=== PATIENT | male | born 1965 | race Caucasian/White ===

== ENCOUNTER 2019-07-01 18:17 | Observation (INO) | payer OTHER, SELFPAY ==
[2019-07-01 18:18] VITALS: BP 157/96; PULSE 74; RESP 16; TEMP 36.4; O2SAT 98; BMI 24.2
--- NOTE | 2019-07-01 18:22 | ED.RN ---
CALLED FOR EKG AT 1820.
[2019-07-01 18:35] VITALS: O2SAT 100
--- NOTE | 2019-07-01 18:35 | EKG12_ITS ---
Test Reason : CP Blood Pressure : / mmHG Vent. Rate : 069 BPM Atrial Rate : 069 BPM P-R Int : 174 ms QRS Dur : 094 ms QT Int : 384 ms P-R-T Axes : 080 066 066 degrees QTc Int : 411 ms Normal sinus rhythm with sinus arrhythmia Normal ECG Confirmed by CORRIE BATES ([id number]), editorial clerk GURMEET LOUIS ([id number]) on 07/03/2019 2:17:42 PM Referred By: Daphne Rosen Confirmed By:CORRIE BATES
--- NOTE | 2019-07-01 18:45 | RAD_ITS ---
STUDY: X-RAY CHEST REASON FOR EXAM: Male, 54 years old. Chest pain. TECHNIQUE: Single AP portable view of the chest. COMPARISON: None. FINDINGS: The lungs are clear and expanded. There is no demonstrated pleural abnormality. Normal size heart. Normal mediastinum and sudhir. Normal visualized pulmonary arteries. Normal visualized aortic arch and descending thoracic aorta. Normal visualized thoracic spine. Normal visualized ribs, clavicles, and shoulders. There is no demonstrated abnormality of the visualized soft tissue structures of the upper abdomen. RAD/Chest 1 View (Portable) IMPRESSION: No acute cardiopulmonary disease. Electronically Signed: Maximiliano Mayfield DO at 19:07 EDT Tel [phone], Service support ,
[2019-07-01] MEDS: Aspirin 81 MG TAB.CHEW 324 MG PO (18:53)
--- NOTE | 2019-07-01 18:57 | ED.VIS.GEN ---
History of Present Illness Chief Complaint: Chest Pain Detail of Chief Complaint: Please read HPI Informant: Patient Onset: Days - Symptoms occurred on Sunday Context: Sudden Onset Timing: Intermittent Quality: Vertigo, nausea, weakness fatigue and chest discomfort Location: Left side of chest Current Severity: - - Presently patient has no symptoms Maximum Severity: Mild Worsened by: Nothing per se Relieved by: Nothing Associated Symptoms: Tingling left arm, please read HPI Narrative: Is a 54-year-old male with history of IBS who presents for evaluation. He had numerous symptoms. Patient states he was very active on Sunday and Sunday and had no symptoms. Sunday morning he awoke had pancakes etc. for breakfast. He went out to the shed to work on the [employer], which she was selling. He states he became dizzy which she defined as a spinning sensation. There was no ocular symptoms and specifically no diplopia. He had episode of vomiting and felt better. He reported breaking out in a cold sweat prior to vomiting. He complained of loss of energy, fatigue and lightheadedness when this occurred. He believes he did not have enough to eat. He went to the house and got to protein bars. He walked back to the barn which is 50 feet from the house. He had recurrence of nausea, diaphoresis and lack of energy. The person came to the house to purchase the Rototiller. He informed the gentleman he did not feel well and would need a minute or 2. He walked back to the shed and went on a 4 greene to show the gentleman something else. He states he had to lean forward because he had no energy. He went into the house and lied on the floor. He was on his left side and specifically on his left arm. When he was lying on his left side he experienced intermittent tingling in his left extremity only. He did complain of discomfort in his chest which he described as a tight sensation. This lasted apparently for some time. He reports yesterday while doing nothing he had a sensation of something on the left side compared to the right. There was no other associated symptoms. Patient is a non-smoker. He is a nondrinker. He has no history of hiatal hernia or peptic ulcer disease. He denies black or maroon stool. Family history is remarkable for hypertension with no known history of LA. Presently has no symptoms. Prior similar symptoms: No Recent Illness/Hospitalization: No - Past Medical History (1) IBS (irritable bowel syndrome) Status: Chronic Past Medical History - Allergies and Home Meds Allergies/Adverse Reactions: Allergies No Known Allergies Allergy (Verified 07/01/19 18:17) Primary Care Physician: NOT,DEFINED [NON-STAFF] - Prior records reviewed: Yes Surgical History: no surgical history Lives: Spouse/ Significant Other Smoking Status: Never smoker Alcohol: None Drugs: None Review of Systems General: Reports: Malaise, Sweats. Denies: Chills, Fever, Subjective, Weight loss Eyes: Denies: Visual changes - bilaterally, Blurred Vision - bilaterally ENT: Denies: Bilateral ear pain, Rhinorrhea, Sore throat Cardiovascular: Reports: Chest pain. Denies: Palpitations, Heart racing Respiratory: Denies: Dyspnea, Cough, Dyspnea on exertion, Orthopnea, Paroxysmal nocturnal dyspnea Gastrointestinal: Reports: Nausea, Vomiting. Denies: Abdominal pain, Diarrhea, Melena, Hematochezia Genitourinary: Denies: Dysuria, Hematuria, Frequency Musculoskeletal: Denies: Myalgias, Arthralgias, Neck pain, Back pain, Swelling, Extremity Pain, -, - Skin: Denies: Rash, Wounds Neurological: Reports: Weakness. Denies: Headache, Parasthesia, Numbness, -, - Endocrine: Denies: Polyuria, Polydipsia Hematologic: Denies: Easy bruising, Easy bleeding Allergy: Denies: Uticaria Physical Exam Vital Signs/Narrative: Vital Signs Temp Pulse Resp BP Pulse Ox 07/01/19 18:35 100 07/01/19 18:18 97.5 F L 74 16 157/96 H 98 Inital Vital Signs reviewed: Yes General: Well nourished, Well developed, No Acute Distress Head: Normocephalic, Atraumatic Eyes: Perrl, EOMI. Negative for: Pale conjunctiva, Scleral icterus ENT: Moist mucous membranes, No rhinorrhea, TM's clear Neck: Supple, Nontender, No lymphadenopathy, No JVD, - - Is midline. There is no carotid bruit. Cardiovascular: Regular rate, Regular rhythm, No murmurs, Normal S1, Normal S2 Respiratory: No distress, CTA bilaterally, Chest nontender Abdomen: Soft, Nontender, Nondistended, Normal bowel sounds Rectal: Deferred Back: Nontender, Normal Inspection Extremities: Nontender, No edema, - - There is no asymmetry, swelling, discoloration, leg vein distention, palpable cords or tenderness along the distribution of the deep venous system. Skin: Normal color, No rash, No Trauma. Negative for: Cyanosis, Diaphoresis, Jaundice Neurological: Alert, Oriented x3, Cranial nerves II-XII grossly intact, Normal Strength, Normal Sensation Psychological: Normal affect, Normal Mood Diagnostic/Tx/Re-eval Chest X-Ray - ED: 1 View, Read by ED Physician, Normal, Heart, Mediastinum, Bony Structures, No Acute Disease, - - Hyper aeration of lung guajardo. There is no evidence of pneumothorax or effusion. X-ray was interpreted by me. Impressions Chest X-Ray 07/01/19 18:45 IMPRESSION: No acute cardiopulmonary disease. Electronically Signed: Maximiliano Mayfield DO at 19:07 EDT Tel [phone], Service support , 07/01/19 18:45 Chest 1 View (Portable) [RAD] Stat Laboratory Results 07/01/19 07/01/19 18:35 18:35 WBC 8.5 RBC 4.80 Hgb 15.0 Hct 44.1 MCV 91.9 MCH 31.3 MCHC 34.0 RDW Std Deviation 42.0 RDW Coeff of Chance 12.5 Plt Count 253 MPV 9.8 Immature Gran % (Auto) 0.500 Neut % (Auto) 58.6 Lymph % (Auto) 29.7 [place] % (Auto) 8.8 Eos % (Auto) 1.5 Baso % (Auto) 0.9 Absolute Neuts (auto) 5.0 Absolute Lymphs (auto) 2.53 Nucleated RBC % 0 Sodium 142 Potassium 3.8 Chloride 110 H Carbon Dioxide 24.0 Anion Gap 8 BUN 19 H Creatinine 1.20 Estim Creat Clear Calc 81.82 Est GFR (MDRD) Af Amer 81 Est GFR (MDRD) Non-Af 67 BUN/Creatinine Ratio 15.8 Glucose 88 Calcium 8.7 Troponin I 0.154 H Patient's troponin is elevated and indeterminate. Will contact hospitalist for observation status to PCU for serial enzymes and further testing. Patient's heart score is a 4. No further treatment was initiated since patient is symptom-free. - Medical Decision Making Patient initial episode of dizziness is consistent with vertigo. This was transient and would suggest peripheral vertigo and not central. Differential regarding chest pain is cardiac versus noncardiac. Since patient had hours of pain on Sunday and prolonged pain on Sunday will obtain EKG and troponin. If troponin is negative with atypical story and EKG is normal that this does not represent cardiac etiology. CBC was obtained to rule out anemia. Basic metabolic panel to rule out renal disease. ED Disposition - Plan for ED Patient: Disposition: Acute Care Hospital [facility] Diagnosis: Chest pressure, Elevated troponin I level Referrals: NOT,DEFINED [NON-STAFF] -
[2019-07-01 19:11] LABS: Absolute Lymphocyte Count 2.53 X10^3/uL (0.83-4.51); Basophil# 0.08 X10^3/uL; Basophil% 0.9 % (0-1); Eosinophil# 0.13 X10^3/uL; Eosinophils% 1.5 % (0-5); Hematocrit 44.1 % (40-54); Lymphocyte # 2.53 X10^3/ul (4.0); Lymphocyte % 29.7 % (19-41); Mean Corpuscular Hgb 31.3 pg (27.0-32.0); Mean Corpuscular Volume 91.9 fL (80-94); Mean Platelet Vol. 9.8 fl (6.2-12.0); Monocyte# 0.75 X10^3/uL; Monocyte% 8.8 % (0-10); NRBC Flagged by Analyzer 0 % (0-5); Neutrophil # 4.99 X10^3/uL (2.7-7.7); Neutrophil % 58.6 % (47-70); Platelet Count 253 K/mm3 (150-450); RBC Distribution Width CV 12.5 % (11.6-14.6); White Blood Count 8.5 K/mm3 (4.4-11.0)
[2019-07-01 19:24] LABS: Anion Gap 8 (5-15); BUN 19 mg/dL (7-18); BUN/Creat Ratio 15.8 RATIO (10-20); Calcium,Total 8.7 mg/dL (8.5-10.1); Chloride 110 mmol/L (98-107); EST Glomerular Filtration Rate 67 mL/min (>60); Est Glom Filt Rate - Afr Amer 81 mL/min (>60); Estimated Creatinine Clearance 81.82 ml/min; Glucose 88 mg/dL (74-106); Potassium 3.8 mmol/L (3.5-5.1); Sodium Level 142 mmol/L (136-145)
[2019-07-01 20:01] VITALS: BP 155/105; PULSE 61; RESP 23; O2SAT 99
[2019-07-01 21:01] VITALS: BP 158/104; PULSE 63; RESP 15; TEMP 36.9; O2SAT 100
--- NOTE | 2019-07-01 21:21 | HP.PCM_ITS ---
Problem List (1) IBS (irritable bowel syndrome) Status: Chronic (2) Chest pressure Status: Acute (3) Elevated troponin I level Status: Acute History of Present Illness Date of Admission: 07/01/19 Chief Complaint: Nausea, dizziness, chest pressure. The patient is a 54 year old M with no significant past medical history presented to the emergency room because of nausea, dizziness and chest pressure. His illness started before yesterday, in the morning after he woke up from sleep, felt nauseated, lightheaded and dizzy, sat down and he continued to have nausea and lightheadedness but later improved. Later on the same day, he started having chest pressure, it is not real pain, described as heavy weight on his chest mainly on the left side, not radiating, continue to have significant nausea with it, associated with with sensation to his left upper extremity and without aggravating or relieving factors. Yesterday after he woke up from sleep, he continued to have this chest pressure which was constant but nausea and dizziness resolved. Today, he denied any more chest pressure but he felt weak, tired and fatigued and he decided to come to the emergency department. In the emergency department, his blood pressure was elevated, other vital signs were stable. His routine blood work was unremarkable. Chest x-ray showed no acute findings. EKG revealed normal sinus rhythm, normal IL interval, normal QRS, normal QTC, no acute segment changes. Troponin was 0.154. He is being admitted for atypical chest pressure with abnormal cardiac enzymes for evaluati on. Past Medical History Past Medical History (Chronic Problems): Chronic Problems IBS (irritable bowel syndrome) (Chronic) Allergies No Known Allergies Allergy (Verified 07/01/19 18:17) Home Medications: Ambulatory Orders Medication Instructions Recorded NK 07/01/19 Surgical History: no surgical history Lives: Spouse/ Significant Other Smoking Status: Never smoker Alcohol: None Drugs: None - *Family History Maternal History Items: Hypertension Paternal History Items: No pertinent history Sibling History Items: Hypertension Review of Systems Constitutional: Reports: Fatigue. Denies: Anorexia, Chills, Fever Eyes: Denies: Blurred vision, Double vision, Drainage, Redness HEENT: Denies: Difficulty Hearing, Ear Pain, Eye Pain, Nasal Congestion, Sore Throat Cardiovascular: Reports: Chest Pressure, Light Headedness. Denies: Chest Pain, Heaviness, Palpitations, Syncope Respiratory: Denies: Cough, Pleuritic Pain, Shortness of Breath, Sputum production, Wheezing Gastrointestinal: Reports: Nausea, Vomiting. Denies: Abdominal Pain, Constipation, Diarrhea Genitourinary: Denies: Dysuria, Frequency, Hematuria Musculoskeletal: Denies: Arm Pain, Back Pain, Foot Pain, Hand Pain Skin: Denies: Dryness, Rash Neurological: Denies: Balance problems, Double vision, Change in Speech, Slurred speech, Confusion, Focal weakness, Incoordination, Numbness Psychiatric: Denies: Anxiety, Depression Endocrine: Denies: Change in Body Habitus, Polydipsia, Polyuria VTE Information - Inpt Only VTE Present on Admission: No VTE Mechan Device Prophylaxis: None VTE Pharm Prophylaxis ordered?: No Patient Problems: Active and Suspected Problems Chest pressure (Acute) Elevated troponin I level (Acute) - Physical Exam Vitals/I&O's: Vital Signs Temp Pulse Resp BP Pulse Ox 98.5 F 63 15 158/104 H 100 07/01/19 21:01 07/01/19 21:01 07/01/19 21:01 07/01/19 21:01 07/01/19 21:01 Oxygen Delivery Method Room Air Weight: 188 lb 7.924 oz Body Mass Index (BMI) 24.2 General: Alert, Oriented x3, Cooperative, No apparent distress HEENT: Atraumatic, PERRLA, EOMI, Normocephalic Oral: Moist Mucosa, No Gingival or Mucosal Lesions/ Ulcerations Neck: Supple, No JVD, Negative Carotid Bruits, Trachea Midline, Thyroid Normal Size and Texture Lungs: Clear to auscultation, Normal air movement, No rhonchi, No wheeze, No rales Cardiovascular: Regular rate, Regular Rhythm, Normal S1, Normal S2, No murmurs, PMI Normal Abdomen: Bowel Sounds Present, Soft, Non Tender, Non-Distended, No Hepato- splenomegaly Extremities: No clubbing, No cyanosis, No edema Skin: No rashes, No breakdown Lymphatic: No Cervical, Supraclavicular, or Inguinal Adenopathy Neurological: Cranial nerves II-XII grossly intact, Motor Exam 5/5 strength throughout Psych/Mental Status: Normal Affect, Appropriate, Alert and oriented to time, place, person, mood and affect Laboratory Results 07/01/19 18:35: WBC 8.5, RBC 4.80, Hgb 15.0, Hct 44.1, MCV 91.9, MCH 31.3, MCHC 34.0, RDW Std Deviation 42.0, RDW Coeff of Chance 12.5, Plt Count 253, MPV 9.8, Immature Gran % (Auto) 0.500, Neut % (Auto) 58.6, Lymph % (Auto) 29.7, [place] % (Auto) 8.8, Eos % (Auto) 1.5, Baso % (Auto) 0.9, Absolute Neuts (auto) 5.0, Absolute Lymphs (auto) 2.53, Nucleated RBC % 0 07/01/19 18:35: Sodium 142, Potassium 3.8, Chloride 110 H, Carbon Dioxide 24.0, Anion Gap 8, BUN 19 H, Creatinine 1.20, Estim Creat Clear Calc 81.82, Est GFR (MDRD) Af Amer 81, Est GFR (MDRD) Non-Af 67, BUN/Creatinine Ratio 15.8, Glucose 88, Calcium 8.7, Troponin I 0.154 H Clinical Impression(s) from Imaging Studies Chest X-Ray 07/01/19 18:45 IMPRESSION: No acute cardiopulmonary disease. Electronically Signed: Maximiliano Mayfield DO at 19:07 EDT Tel [phone], Service support , Assessment/Plan All Active Problems Chest pressure (Acute) Elevated troponin I level (Acute) This is a 54 years old male patient presented to the emergency room because of nausea, dizziness and chest pressure, found to have indeterminate troponin and he is being admitted for evaluation. #1 atypical chest pressure/abnormal cardiac enzymes: Patient has no risk factors for CAD. He is non-smoker, nondrinker, no family history of premature CAD. EKG showed no acute ischemic changes. Troponin is indeterminate. Chest x-ray showed no acute findings. Blood pressure is elevated, other vital signs are stable, no tachycardia, pulse ox is maintained on room air. Plan: Admit to PCU for observation, cardiac monitoring, serial cardiac enzymes, repeat EKG tomorrow morning, sublingual nitroglycerin PRN, Tylenol PRN, gentle IV fluids for ideation, IV antiemetics as needed, start baby aspirin, fasting lipid profile 2D echocardiogram, cardiology consult. Case discussed with Dr. Steinberg who recommended 2D echocardiogram and patient will be seen in consultation tomorrow morning and they will decide if we need to go for stress test or directly for cardiac catheterization. #2 elevated blood pressure: Blood pressure has been up to 170 systolic in the ED. Plan to monitor, IV hydralazine PRN, may need to start him on antihypertensive medications. #3 DVT prophylaxis: Low risk patient, no prophylaxis indicated. This note was generated with [employer] dictation software. It may contain incorrect words, spelling, and punctuation that were not noted in checking the note before signing. OBSV E&M: 81027 Initial observation care L3
[2019-07-01 21:30] VITALS: BP 149/93; PULSE 61; RESP 16; TEMP 37.3; O2SAT 99; BMI 23.6
--- NOTE | 2019-07-01 21:46 | ECHOD_ITS ---
Reason For Study: CHEST PAIN Procedure This was a 2D Doppler, Color Flow transthoracic echocardiogram. The study was technically difficult. The study was technically limited. Due to poor parasternal accoustic windows. Exam performed portable in patient room. Left Ventricle Normal LV size. Left ventricular systolic function is normal. The estimated ejection fraction is 60 %. No evidence for diastolic dysfunction. No regional wall motion abnormalities noted. Right Ventricle Normal RV size. Normal systolic function. Atria Normal left atrium. Normal right atrium. No doppler evidence for ASD. Mitral Valve There is no mitral annular calcification. Normal mitral valve. Trivial mitral valve insufficiency. Tricuspid Valve Normal tricuspid valve. Trivial tricuspid valve insufficiency. Aortic Valve The aortic valve is not well visualized. Pulmonic Valve The pulmonic valve is not well visualized. Great Vessels Normal sized aortic root. Pericardium/Pleural No pericardial effusion. MMode/2D Measurements & Calculations LVIDd: 5.1 cm IVSd: 0.89 cm Ao root diam: 3.2 cm LVIDs: 3.5 cm LVPWd: 0.89 cm RVDd: 3.2 cm FS: 31.9 % LAV(MOD-bp): 39.3 ml LA A4 area: 11.3 cm2 RA A4 area: 13.6 cm2 LAV(MOD-bp) Indexed: 18.8 ml/m2 LAV(MOD-sp2): 46.1 ml LAV(MOD-sp4): 26.7 ml Time Measurements MV dec time: 0.21 sec Doppler Measurements & Calculations MV E max rush: 78.7 cm/sec Lat Peak E' Rush: 10.9 cm/sec Med Peak E' Rush: 9.7 cm/sec MV A max rush: 66.0 cm/sec E/E' lat: 7.2 E/E' med: 8.1 MV E/A: 1.2 Ao V2 max: 130.4 cm/sec LV V1 max: 99.3 cm/sec Ao max P.8 mmHg LV V1 max P.9 mmHg Interpretation Summary Left ventricular systolic function is normal. The estimated ejection fraction is 60 %. Trivial mitral valve insufficiency. Trivial tricuspid valve insufficiency. No evidence for diastolic dysfunction. Ordering Physician: Daphne Rosen Referring Physician: CASH PCP Performed By: Shagufta Ocampo, VIKTORIYA, RVT
[2019-07-01 21:59] VITALS: PULSE 67
[2019-07-01] MEDS: 0.9% Normal Saline 1,000 ML 75 ML IV (22:06)
--- NOTE | 2019-07-01 22:45 | EKG12_ITS ---
Test Reason : CP ADMISSION Blood Pressure : / mmHG Vent. Rate : 058 BPM Atrial Rate : 058 BPM P-R Int : 154 ms QRS Dur : 096 ms QT Int : 424 ms P-R-T Axes : 060 056 057 degrees QTc Int : 416 ms Sinus bradycardia with sinus arrhythmia Otherwise normal ECG No previous ECGs available Confirmed by AMELIA MCCARTNEY, SKY ([id number]), desk editor GURMEET LOUIS ([id number]) on 07/07/2019 11:50:05 AM Referred By: Daphne Rosen Confirmed By:NIKIA CISNEROS MD
[2019-07-01 23:10] LABS: International Normalized Ratio 1.1; Prothrombin Time (Protime)PT. 14.1 SECONDS (11.7-14.9)
[2019-07-01 23:24] LABS: Thyroid Stim Hormone (TSH) 2.39 uIU/mL (0.358-3.74)
[2019-07-02] VITALS (15 sets, daily range): BP systolic 129–156; BP diastolic 70–98; PULSE 50–78; RESP 16–18; TEMP 36.6–36.7; O2SAT 98–100
[2019-07-02 05:09] LABS: Cholesterol 150 mg/dL (200); High Density Lipoprotein 61 mg/dL; Triglycerides 59 mg/dL; Very Low Density Lipoprotein 12 mg/dL (5-40)
--- NOTE | 2019-07-02 05:55 | EKG12_ITS ---
Test Reason : AM EKG Blood Pressure : / mmHG Vent. Rate : 051 BPM Atrial Rate : 051 BPM P-R Int : 202 ms QRS Dur : 092 ms QT Int : 448 ms P-R-T Axes : 076 048 062 degrees QTc Int : 412 ms Sinus bradycardia Otherwise normal ECG When compared with ECG of 01-JUL-2019 22:18, MANUAL COMPARISON REQUIRED, DATA IS UNCONFIRMED Confirmed by AMELIA MCCARTNEY, SKY ([id number]), news assignment editor GURMEET LOUIS ([id number]) on 07/07/2019 11:47:09 AM Referred By: Daphne Rosen Confirmed By:NIKIA CISNEROS MD
--- NOTE | 2019-07-02 08:42 | CON.PCM_ITS ---
Problem List (1) Chest pressure Status: Acute (2) Elevated troponin I level Status: Acute (3) IBS (irritable bowel syndrome) Status: Chronic Reason for Consult Date of Consultation: 07/02/19 History of Present Illness: The patient is a 54 year [id number] white male with a past medical history of irritable bowel syndrome who presents for evaluation of symptoms including chest discomfort, left upper extremity paresthesias, nausea, vomiting and weakness. He states for the most part he has been in good health, with no other diagnosis, and on no prescription medication. He states he felt fine this past Sunday. However this past Sunday he noted a variety of symptoms as he was out and about working on his property. He attributed it to the sun and warmth and potentially being somewhat dehydrated. 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 He spent time resting on his kitchen floor and his living room floor. He did not feel he needed to present to the emergency department for any evaluation at that time. On Sunday he felt somewhat better and was somewhat more active. On Sunday he went to work and stated he still did not f eel the best and had intermittent bilateral upper extremity paresthesias. During his symptoms he also felt very weak in the legs and had a difficult time walking any distance. He states he had to ride his 4 greene for short distances around his property only as he was too weak to walk. Thus at the urging of his family he presented to the emergency department for further evaluation. There he stated overall he felt somewhat better. He was evaluated and noted to have indeterminate troponin I levels. His ECG demonstrated sinus rhythm with sinus arrhythmia with no acute ECG changes. His chest x-ray was reported with no acute changes. He was subsequently placed in the hospital for further evaluation and care and treated with IV fluids. He has had subsequent troponin I levels which have remained indeterminate. His follow- up ECG demonstrated no acute ECG changes. Cardiovascular consultation was requested based upon his symptoms, indeterminate troponin I levels with a concern of a non-ST segment elevation ME, and no other obvious etiology thus far to explain his symptoms or his abnormal troponin I levels. He states otherwise he is an active person at home and at work. He has denied other exertional related chest discomforts. There is been no orthopnea PND or peripheral pitting edema. There is been no report of loss of consciousness. He states during his recent illness he did feel as if there was a weight sitting on his chest. He states it was not crushing but he could still feel as if there was a weight sitting on his chest. It waxed and waned throughout his recent illness and other associated symptoms. [] Past Medical History Allergies/Adverse Reactions: Allergies No Known Allergies Allergy (Verified 07/01/19 18:17) Home Medications: Ambulatory Orders Medication Instructions Recorded Naproxen Sodium [Aleve] 200 mg PO 07/01/19 Past Medical History (Chronic Problems): Chronic Problems IBS (irritable bowel syndrome) (Chronic) Surgical History: no surgical history - *Family History Maternal History Items: Hypertension Paternal History Items: No pertinent history Sibling History Items: Hypertension Lives: Spouse/ Significant Other Smoking Status: Never smoker Alcohol: None Drugs: None Review of Systems - Review of Systems General: Reports: Weakness, Decreased Appetite. Denies: Fever, Fatigue, Night Sweats Cardiovascular: Reports: Chest Discomfort, Chest Discomfort at Rest. Denies: Shortness of Breath, Orthopnea, PND, Peripheral Edema, Palpitations, Lightheadedness, Dizziness, Near Syncope, Syncope Respiratory: Denies: Cough, Sputum Production, Hemoptysis Gastrointestinal: Reports: Nausea, Emesis. Denies: Hematemesis, Hematochezia, Melena Genitourinary: Denies: Dysuria, Hematuria Skin: Denies: Rash Subjectve: This is a 54-year-old white male who appears resting reasonably comfortably at this time in no acute distress. Objective: Vital Signs Temp Pulse Resp BP Pulse Ox 97.8 F 55 L 16 138/73 H 98 07/02/19 03:19 07/02/19 06:59 07/02/19 03:19 07/02/19 03:19 07/02/19 07:45 Oxygen Delivery Method Room Air Weight: 183 lb 10.321 oz Body Mass Index (BMI) 23.6 Intake and Output for Last 24 Hours 06/30/19 07/01/19 07/02/19 23:59 23:59 23:59 Intake Total 250 / 250 300 / 300 Output Total 0 / 0 Balance 250 / 250 300 / 300 General: Awake, Alert, Oriented x 3, Cooperative, No Acute Distress HEENT: Atraumatic, Normocephalic, PERRL, EOMI, Sclera Non Icteric Oral: Moist Mucosa Neck: Supple, Good ROM, No JVD Lungs: Clear to auscultation Cardiovascular: Regular Rhythm, Normal S1, Normal S2 Vascular: No Carotid Bruits Abdomen: Bowel Sounds Present, Soft, Non Tender Extremities: No edema Neurological: No Focal Motor or Sensory Deficit Psych/Mental Status: Appropriate 07/01/19 18:35: WBC 8.5, RBC 4.80, Hgb 15.0, Hct 44.1, MCV 91.9, MCH 31.3, MCHC 34.0, Plt Count 253, MPV 9.8, Immature Gran % (Auto) 0.500, Neut % (Auto) 58.6, Lymph % (Auto) 29.7, [place] % (Auto) 8.8, Eos % (Auto) 1.5, Baso % (Auto) 0.9, Absolute Neuts (auto) 5.0, Nucleated RBC % 0 07/01/19 18:35: Sodium 142, Potassium 3.8, Chloride 110 H, Carbon Dioxide 24.0, Anion Gap 8, BUN 19 H, Creatinine 1.20, Est GFR (MDRD) Af Amer 81, Est GFR (MDRD) Non-Af 67, BUN/Creatinine Ratio 15.8, Glucose 88, Calcium 8.7, Troponin I 0.154 H 07/01/19 22:43: PT 14.1, INR 1.1 07/01/19 22:43: Troponin I 0.204 H 07/02/19 00:26: Triglycerides 59, Cholesterol 150, LDL Cholesterol 77, VLDL Cholesterol 12, HDL Cholesterol 61 07/02/19 00:35: Troponin I 0.205 H Rhythm: Sinus rhythm EKG: Sinus rhythm/sinus arrhythmia CXR: Preliminary evaluation: No acute cardiopulmonary disease process appreciated: Please see official report Assessment/Plan 1. Chest pressure The patient has had chest discomfort along with his other symptoms. His symptom complex is concerning for underlying cardiovascular disease. Thus far there is been no other etiology to explain his symptoms and/or objective findings. At the moment he appears to be resting comfortably. His noninvasive studies such as his laboratory studies and his ECGs have been reviewed. At the present time he will continue further cardiovascular evaluation. This would include a combination of noninvasive and invasive studies. From a noninvasive standpoint this would include an echocardiogram to evaluate his left ventricular wall motion systolic function. However based upon his symptom complex and abnormal troponin I levels with no other definitive explanation at this time it would also raise concerns about underlying CAD and an acute coronary syndrome/non-ST segment elevation ME. Thus he will be recommended for further evaluation with diagnostic cardiac catheterization. The procedure and risks were discussed with him and he was agreeable to this approach. In the interim he will continue medical therapy as deemed appropriate. 2. Abnormal troponin I levels He does have abnormal troponin I levels. Again there is been no other etiology to explain his troponin I levels. With his symptom complex and abnormal troponin I [id number] is concern about the possibility of underlying recent acute coronary syndrome with a non-ST segment elevation ME. Thus he will continue to be monitored. He will continue noninvasive and invasive evaluation as noted. In the meantime he is being treated with antiplatelet therapy. He will be placed on additional medical therapy as deemed appropriate. 3. Irritable bowel syndrome He does have a history of irritable bowel syndrome. He states it is been stable for quite some time. He has had no medication for quite some time. The above was discussed with the patient. He was agreeable to this approach. This note was generated using a voice recognition system and there may be incorrect words, spelling or punctuation that were not noted when reviewing the office note prior to saving. Procedure Criteria Procedure Type: Essential Procedure Essential: Yes Criteria Statement: On 04/22/2019 the [facility] ([facility]) Public Order signed by [facility] Director Pina Gann M.D., regarding the Management of Non-Essential Surgeries and Procedures for the purpose of preserving Personal Protective Equipment (PPE) and critical hospital capacity and resources within [place] went into effect as of 04/23/2019 at 5:00PM. According to the [facility] Public Order: This action will remain in full force and effect until the State of Emergency declared by the Governor no longer exists or the Director of the [facility] rescinds or modifies this Order. This [facility] order stated all non-essential or elective surgeries and procedures that utilize PPE should be delayed unless there is undue risk to the current or future health of a patient. After reviewing the aforementioned [facility] Public Order and the patient's clinical case, I have determined that the scheduled procedure meets the criteria to go forward. Risk to Patient if Procedure Delayed: Threat of permanent dysfunction of an extremity or organ if delayed - Abnormal TI level concerning for a recent ACS/NSTEMI
--- NOTE | 2019-07-02 09:06 | CASEMGMT ---
According to [employer] website, the following are in-network tertiary facilities: [facility], [facility], [facility], [facility], [facility], [place], [facility], and . Lisa [place] CM
[2019-07-02] MEDS: Aspirin 81 MG TAB.CHEW PO (09:15)
[2019-07-02] MEDS: TICAGRELOR 90 MG TABLET 180 MG PO (09:15)
--- NOTE | 2019-07-02 09:36 | NURSING ---
Called report to [facility] [place] in [employer]
[2019-07-02] MEDS: 0.9% Normal Saline 1,000 ML 75 ML IV (11:04)
--- NOTE | 2019-07-02 14:55 | NURSING ---
Walked patient in hallway, tolerated well. bedrest complete. right groin site c/d/i. No hematoma noted
--- NOTE | 2019-07-02 16:40 | DCINST_ITS ---
- Discharge Diagnoses Current Active Problems: Current Active and Chronic Problems Chest pressure (Acute) Elevated troponin I level (Acute) You will use the following diet at home:: Cardiac Your food should be the consistency of: Regular Your liquids should be the consistency of: Regular/Thin Discharge Activity: Return to Normal Activity Call your doctor if you observe: Fever of 101 or Higher, Shortness of breath, D izziness, Fainting spells, Swelling in the ankles, Chest pain, Increased palpitations (irregular heartbeat) Allergies/Adverse Reactions: Allergies No Known Allergies Allergy (Verified 07/01/19 18:17) Medications to take at Discharge Naproxen Sodium [Aleve] 200 mg PO 07/01/19 Amlodipine Besylate [Norvasc] 10 mg PO DAILY #30 tab 07/02/19 Aspirin [Aspirin, Baby] 81 mg PO DAILY@0800 #30 tab.chew 07/02/19 The following prescriptions were given: Aspirin [Aspirin, Baby] 81 mg PO DAILY@0800 #30 tab.chew Transmission Status: [id number] Amlodipine Besylate [Norvasc] 10 mg PO DAILY #30 tab Transmission Status: [id number] Primary Care Physician: NOT,DEFINED [NON-STAFF] - Please follow up with your Primary Care Physician in: 2-4 weeks Test Results: Test results from this visit will be discussed in further detail at your follow- up appointment, if applicable.
--- NOTE | 2019-07-02 16:46 | PCA ---
List of area PCPs given to patient with discharge paperwork.
--- NOTE | 2019-07-02 17:04 | PCM.DC.SUM ---
Discharge Date and Diagnosis Date of Admission: 07/01/19 Date of Discharge: 07/02/19 - Secondary Discharge Diagnosis Chronic Problems: Chronic Problems IBS (irritable bowel syndrome) (Chronic) Hospital Course and Treatment Imaging Results: CXR: IMPRESSION: No acute cardiopulmonary disease. Echo: Interpretation Summary Left ventricular systolic function is normal. The estimated ejection fraction is 60 %. Trivial mitral valve insufficiency. Trivial tricuspid valve insufficiency. No evidence for diastolic dysfunction. Consults: Cardiology Operations: None Procedures: 2-D Echocardiogram, Cardiac catheterization Summary of Care Provided: Per HPI: The patient is a 54 year old M with no significant past medical history presented to the emergency room because of nausea, dizziness and chest pressure. His illness started before yesterday, in the morning after he woke up from sleep, felt nauseated, lightheaded and dizzy, sat down and he continued to have nausea and lightheadedness but later improved. Later on the same day, he started having chest pressure, it is not real pain, described as heavy weight on his chest mainly on the left side, not radiating, continue to have significant nausea with it, associated with with sensation to his left upper extremity and without aggravating or relieving factors. Yesterday after he woke up from sleep, he continued to have this chest pressure which was constant but nausea and dizziness resolved. Today, he denied any more chest pressure but he felt weak, tired and fatigued and he decided to come to the emergency department. In the emergency department, his blood pressure was elevated, other vital signs were stable. His routine blood work was unremarkable. Chest x-ray showed no acute findings. EKG revealed normal sinus rhythm, normal HI interval, normal QRS, normal QTC, no acute segment changes. Troponin was 0.154. He is being admitted for atypical chest pressure with abnormal cardiac enzymes for evaluation. Hospital Course: 1. Atypical chest pain with elevated troponin- 54-year-old male who has no consistent medical care as an outpatient presents with atypical chest pain/pressure starting Sunday and intermittent. He says his chest pressure is completely gone now he had a cardiac cath today which showed normal coronary arteries and an echo which showed a normal cardiac function. EKG was unremarkable. Blood pressures were borderline high in the 130s to low 150s, and he does describe a significant history of stress life and seems not sure how much of that is causing the symptoms that he is feeling. He was started on aspirin on the recommendation of cardiology, and I went ahead and put him on Norvasc to help control his blood pressure as is the only other abnormal he is here. I did recommend that he follow-up with primary care doctor to adjust medications and to monitor his blood pressure as an outpatient. I stressed to him that if he does get his life stress more control and does start exercising and monitoring his diet he could potentially come off blood pressure medication in future. He also had a lipid panel performed which was unremarkable, LDL was 77 with an HDL of 61 and total cholesterol of 150 with triglycerides of 59. I discussed with him the risk and benefits of going home and expressed understanding. I discussed with him the need to come back to the hospital with his chest pressure recurs. - Physical Exam Vitals/I&O's: Vital Signs Temp Pulse Resp BP Pulse Ox 98.1 F 75 18 156/70 H 100 07/02/19 14:45 07/02/19 14:59 07/02/19 14:45 07/02/19 14:45 07/02/19 14:45 Oxygen Delivery Method Room Air Weight: 183 lb 10.321 oz Body Mass Index (BMI) 23.6 Intake and Output for Last 24 Hours 06/30/19 07/01/19 07/02/19 23:59 23:59 23:59 Intake Total 250 / 250 1616.25 / 1616.25 Output Total 0 / 0 625 / 625 Balance 250 / 250 991.25 / 991.25 General: Alert, Oriented x3, Cooperative, No apparent distress HEENT: Atraumatic, PERRLA, EOMI, Normocephalic Oral: Moist Mucosa Neck: Supple, No JVD Lungs: Clear to auscultation, Normal air movement, No rhonchi, No wheeze, No rales Cardiovascular: Regular rate, Regular Rhythm, Normal S1, Normal S2, No murmurs Abdomen: Soft, Non Tender, Non-Distended, No Hepato-splenomegaly Extremities: No edema, Capillary Refill Less than 3 Seconds Skin: No rashes, No breakdown Neurological: Neuro grossly intact, Sensory exam intact to light touch and pain Psych/Mental Status: Normal Affect, Appropriate Laboratory Results 07/01/19 18:35: WBC 8.5, RBC 4.80, Hgb 15.0, Hct 44.1, MCV 91.9, MCH 31.3, MCHC 34.0, RDW Std Deviation 42.0, RDW Coeff of Chance 12.5, Plt Count 253, MPV 9.8, Immature Gran % (Auto) 0.500, Neut % (Auto) 58.6, Lymph % (Auto) 29.7, [place] % (Auto) 8.8, Eos % (Auto) 1.5, Baso % (Auto) 0.9, Absolute Neuts (auto) 5.0, Absolute Lymphs (auto) 2.53, Nucleated RBC % 0 07/01/19 18:35: Sodium 142, Potassium 3.8, Chloride 110 H, Carbon Dioxide 24.0, Anion Gap 8, BUN 19 H, Creatinine 1.20, Estim Creat Clear Calc 81.82, Est GFR (MDRD) Af Amer 81, Est GFR (MDRD) Non-Af 67, BUN/Creatinine Ratio 15.8, Glucose 88, Calcium 8.7, Troponin I 0.154 H 07/01/19 22:43: PT 14.1, INR 1.1 07/01/19 22:43: TSH 2.39 07/01/19 22:43: Troponin I 0.204 H 07/02/19 00:26: Triglycerides 59, Cholesterol 150, LDL Cholesterol 77, VLDL Cholesterol 12, HDL Cholesterol 61 07/02/19 00:35: Troponin I 0.205 H Discharge Activity: Return to Normal Activity Call your doctor if you observe: Fever of 101 or Higher, Shortness of breath, Dizziness, Fainting spells, Swelling in the ankles, Chest pain, Increased palpitations (irregular heartbeat) Home Medications: Medications to take at Discharge Naproxen Sodium [Aleve] 200 mg PO 07/01/19 Amlodipine Besylate [Norvasc] 10 mg PO DAILY #30 tab 07/02/19 Aspirin [Aspirin, Baby] 81 mg PO DAILY@0800 #30 tab.chew 07/02/19 Following Prescrptions Were Given to Patient: Aspirin [Aspirin, Baby] 81 mg PO DAILY@0800 #30 tab.chew Transmission Status: [id number] Amlodipine Besylate [Norvasc] 10 mg PO DAILY #30 tab Transmission Status: [id number] Primary Care Physician: NOT,DEFINED [NON-STAFF] - Please follow up with your Primary Care Physician in: 2-4 weeks Disposition: Home Minutes spent on discharge:: 35 Patient Condition:: Stable Medical Necessity - Tobacco Use Smoking Status: Never smoker Meaningful Use Info Meaningful Use Diagnoses (Choose all that apply): None applicable OBSV E&M: 82054 Observation care discharge
--- NOTE | 2019-07-02 17:56 | CL.D_ITS ---
Patient Name: FLACO WASHINGTON Study Date: 07/02/2019 Performing: Yousif Steinberg MD Ht: 74 inches 188 cm : 1965 Wt: 183.2 lbs 83 kg Age: 54 Gender: male BSA: 2.09 PROCEDURE(S) PERFORMED [id number]/LV CLINICAL PROFILE AND INDICATIONS Indications: Suspected CAD Heart Failure: None Stress/Imaging Stress/Image Study Performed: No CAD Presentations: Non-STEMI. CONCLUSIONS Normal Left Ventricular End Diastolic Pressure Normal LV size, wall motion,and systolic function LVEF: by LV gram 55 % Normal coronary arteries MV scalloping potentially c/w Mitral Valve Prolapse Mild RECOMMENDATIONS Risk factor modification Medical therapy DESCRIPTION OF PROCEDURE The patient arrived to the procedure lab. The risks and benefits of the procedure as well as a full d escription of our services here and current unavailability of surgical backup were fully explained to the patient and/or their significant other prior to the catheterization. The Timeout was completed, verifying the correct patient and procedure. The patient's procedural site was prepped and draped in the usual fashion. Local anesthetic was given subcutaneously to right groin region with Lidocaine 2%. Using a modified Seldinger technique, arterial access was obtained via the right femoral artery, a 4 Fr sheath was inserted Left Coronary Artery selective angiography was performed in multiple views us ing a 4 Fr. JL5 catheter. Right Coronary Artery selective angiography was then performed in multiple views using a 4 Fr. 3DRC catheter. Left Ventriculography was performed in SO projection using a 4 Fr . Pigtail catheter. LV to AO pullback pressures were then recorded.The arterial sheath was pulled and manual compression applied until hemostasis is achieved. CORONARY ANGIOGRAPHY DOMINANCE: Right Dominant LEFT HEART ASSESSMENT Left Ventricular Ejection Fraction: by LV Gram 55 % Normal LV wall motion Normal Left Ventricular End Diastolic Pressure LVEDP: 12 mmHg LEFT MAIN: Angiographically normal LEFT ANTERIOR DESCENDING ARTERY: Angiographically normal CIRCUMFLEX ARTERY: Angiographically normal RIGHT CORONARY ARTERY: Angiographically normal VALVE FINDINGS: MV scalloping potentially c/w MVP - Mild AORTIC ROOT: Angiographically normal COMPLICATIONS No Complications PROCEDURE MEDICATIONS Versed 1 mg IV Oxygen: 2 L/min via nasal cannula SUMMARY OF HEMODYNAMIC DATA Time AIR REST ECG 10:01:39 AO 128/82 (103) SA 10:12:26 LV 148/-15, 17 10:19:07 LV 156/-14, 12 10:19:14 LV 161/-9, 21 10:20:10 LVp 154/-3, 18 10:21:01 AOp 150/79 (111) 10:21:06 Signed By Yousif Steinberg MD On 07/02/2019 17:55:53 Youisf Steinberg MD
== END 2019-07-02 16:43 | disposition home or self-care (01) ==
LOC: ED 20:22 → PCU 21:40
PROVIDERS: Admitting Provider Hospitalist; Emergency Provider Emergency Medicine; Referring Provider Hospitalist; Visit Provider Family Medicine
DX: R07.89 Other chest pain (principal); K58.9 Irritable bowel syndrome, unspecified; R42 Dizziness and giddiness; R79.89 Other specified abnormal findings of blood chemistry; R03.0 Elevated blood-pressure reading, without diagnosis of hypertension; R11.2 Nausea with vomiting, unspecified; R20.2 Paresthesia of skin; R53.1 Weakness; I08.1 Rheumatic disorders of both mitral and tricuspid valves; R00.1 Bradycardia, unspecified
CPT/HCPCS: 36415; 71045; 80048; 80061; 84443; 84484; 85025; 85610; 93005; 93306; 93458; 96360; 96361; 99152; 99218; 99285; J7030; Q9957; Q9967; A4216; C1769; C1894; G0378